=== PATIENT | female | born 1990 | race Caucasian/White ===

== ENCOUNTER 2017-07-06 16:21 | Outpatient (CLI) | payer MEDICAID | END 2017-07-06 17:56 | disposition home or self-care (01) | LOC: OBT 16:21 → L-D 16:23 → OBT 17:56 | DX: O26.893 Other specified pregnancy related conditions, third trimester (principal); R00.2 Palpitations; R06.02 Shortness of breath; Z3A.35 35 weeks gestation of pregnancy | CPT/HCPCS: 76818 ==

== ENCOUNTER 2017-07-06 18:00 | Emergency (ER) | payer MEDICAID | END 2017-07-06 23:07 | disposition home or self-care (01) | LOC: FTE 18:00 | DX: O99.89 Other specified diseases and conditions complicating pregnancy, childbirth and the puerperium (principal); R00.2 Palpitations; Z3A.34 34 weeks gestation of pregnancy | CPT/HCPCS: 93005; 99283-25 ==

== ENCOUNTER 2017-07-29 18:14 | Outpatient (CLI) | payer MEDICAID ==
[2017-07-29 19:41] LABS: ADD UMIC YES; UR ASCORBIC ACID NEGATIVE (NEGATIVE); UR BACTERIA FEW /HPF (NONE SEEN); UR BILIRUBIN (Dip) NEGATIVE (NEGATIVE); UR BLOOD (Dip) NEGATIVE (NEGATIVE); UR CALCIUM OXALATE CRYSTAL MANY /HPF (NONE SEEN); UR CLARITY SLIGHTLY CLOUDY (CLEAR); UR COLOR YELLOW (YELLOW); UR GLUCOSE (Dip) NEGATIVE (NEGATIVE); UR KETONES (Dip) NEGATIVE (NEGATIVE); UR LEUKOCYTE ESTERASE (Dip) TRACE Leu/ul (NEGATIVE); UR MUCUS FEW /HPF (NONE SEEN); UR NITRITE (Dip) NEGATIVE (NEGATIVE); UR RBC 3 /HPF (0-5); UR SPECIFIC GRAVITY (Dip) 1.033 (1.003-1.030); UR SQUAMOUS EPITHELIAL CELL MODERATE /HPF (FEW); UR TOTAL PROTEIN (Dip) 1+ mg/dl (NEGATIVE); UR UROBILINOGEN (Dip) 1+ mg/dL (NEGATIVE); UR WBC 5 /HPF (0-5)
[2017-07-29] MEDS ORDERED: LACTATED RINGER'S 1,000 ML IV (20:00)
[2017-07-29] MEDS: LACTATED RINGER'S 1,000 ML IV (20:17)
[2017-07-29] MEDS ORDERED: FENTAnyl 2MCG/ML-ROPIV 0.2% 100 ML (23:08)
== END 2017-07-29 23:56 | disposition home or self-care (01) ==
LOC: OBT 18:14 → L-D 18:15 → OBT 23:56
DX: O62.9 Abnormality of forces of labor, unspecified (principal); Z3A.38 38 weeks gestation of pregnancy
CPT/HCPCS: 36415; 76818; 81001; 96360; 96361

== ENCOUNTER 2017-08-01 18:27 | Observation (INO) | payer MEDICAID ==
[2017-08-01] MEDS: LACTATED RINGER'S 1,000 ML IV ×2 (20:31→22:05)
[2017-08-01] MEDS: ACETAMINOPHEN 1000MG/100ML IV 100 ML IVPB (21:16)
[2017-08-01 23:01] LABS: ADD UMIC YES; UR ASCORBIC ACID NEGATIVE (NEGATIVE); UR BACTERIA FEW /HPF (NONE SEEN); UR BILIRUBIN (Dip) NEGATIVE (NEGATIVE); UR BLOOD (Dip) NEGATIVE (NEGATIVE); UR CLARITY CLEAR (CLEAR); UR COLOR YELLOW (YELLOW); UR GLUCOSE (Dip) NEGATIVE (NEGATIVE); UR KETONES (Dip) NEGATIVE (NEGATIVE); UR LEUKOCYTE ESTERASE (Dip) TRACE Leu/ul (NEGATIVE); UR NITRITE (Dip) NEGATIVE (NEGATIVE); UR RBC 1 /HPF (0-5); UR SPECIFIC GRAVITY (Dip) 1.014 (1.003-1.030); UR SQUAMOUS EPITHELIAL CELL FEW /HPF (FEW); UR TOTAL PROTEIN (Dip) NEGATIVE (NEGATIVE); UR UROBILINOGEN (Dip) 1+ mg/dL (NEGATIVE); UR WBC 1 /HPF (0-5)
[2017-08-01] MEDS ORDERED: OXYTOCIN 30 UNITS/LR 500 ML IV (23:30)
[2017-08-01] MEDS ORDERED: METHYLERGONOVINE 0.2 MG INJ IM (23:30)
[2017-08-01] MEDS ORDERED: CARBOPROST 250 MCG INJ IM (23:30)
[2017-08-01] MEDS ORDERED: MISOPROSTOL 200 MCG TAB PR (23:30)
[2017-08-01 23:42] LABS: ADD MAN DIFF? NO
[2017-08-01 23:43] LABS: WHITE BLOOD COUNT 8.5 10^3/ul (4.8-10.8)
[2017-08-01 23:43] LABS: ABNORMAL IP MESSAGE 1; BASOPHILS % 0.2 % (0.0-2.0); EOSINOPHILS % 0.2 % (0.0-7.0); HEMATOCRIT 35.6 % (37.0-47.0); HEMOGLOBIN 11.9 g/dl (12.0-16.0); LYMPHOCYTES # 0.4 10^3/ul (0.8-2.9); LYMPHOCYTES % 4.8 % (15.0-51.0); MEAN CORPUSCULAR HGB CONC 33.4 g/dl (32.0-37.0); MEAN CORPUSCULAR VOLUME 95.7 fl (82.0-101.0); MONOCYTE # 0.5 10^3/ul (0.3-0.9); MONOCYTES % 5.4 % (0.0-11.0); NEUTROPHIL # 7.6 10^3/ul (1.6-7.5); PLATELET COUNT 139 10^3/UL (140-415); RED BLOOD COUNT 3.72 10^6/ul (4.20-5.40); RED CELL DISTRIBUTION WIDTH 13.2 % (11.5-14.5)
[2017-08-02] LABS: INR 0.98; PROTIME 13.1 Sec (11.9-14.9)
[2017-08-02 00:01] LABS: PARTIAL THROMBOPLASTIN TIME 30.3 Sec (25.0-35.0)
[2017-08-02 00:32] LABS: HEPATITIS B SURFACE ANTIGEN NEGATIVE (NEGATIVE)
[2017-08-02 01:10] LABS: POSITIVE DIFF @See below
[2017-08-02] MEDS: LACTATED RINGER'S 500 ML IV ×2 (02:02)
[2017-08-02] MEDS: OSELTAMIVIR 75 MG CAP PO (04:05)
[2017-08-02] MEDS: ACETAMINOPHEN 1000MG/100ML IV 100 ML IVPB (04:27)
[2017-08-02] MEDS: LACTATED RINGER'S 1,000 ML IV ×2 (04:28→12:54)
[2017-08-02] MEDS ORDERED: KETOROLAC 30 MG INJ (14:00)
[2017-08-02] MEDS ORDERED: METOCLOPRAMIDE 10 MG INJ (14:00)
[2017-08-02] MEDS ORDERED: ONDANSETRON 4 MG INJ (14:00)
[2017-08-02] MEDS ORDERED: morphine SULFATE/PF (10 MG/10 ML) INJ (14:00)
[2017-08-02] MEDS: AZITHROMYCIN 250 MG TAB PO (16:10)
[2017-08-02 22:57] LABS: RAPID PLASMA REAGIN NONREACTIVE (NR)
[2017-08-03] MEDS ORDERED: AZITHROMYCIN 250 MG TAB PO (09:00)
== END 2017-08-02 16:20 | disposition home or self-care (01) ==
LOC: OBT 18:27 → L-D 18:27 → OBT 23:39 → L-D 23:40
DX: O26.893 Other specified pregnancy related conditions, third trimester (principal); J11.1 Influenza due to unidentified influenza virus with other respiratory manifestations; Z3A.38 38 weeks gestation of pregnancy
CPT/HCPCS: 36415; 76818; 81001; 85025; 85610; 85730; 86592; 86850; 86900; 86901; 87086; 87340; 96360; 96361; 99217

== ENCOUNTER 2017-08-05 08:53 | Inpatient (IN) | payer MEDICAID ==
[2017-08-05] MEDS ORDERED: CARBOPROST 250 MCG INJ IM ×2 (09:30→19:00)
[2017-08-05] MEDS ORDERED: CEFAZOLIN 2 GM/50 ML (PMX) 50 ML IV (09:30)
[2017-08-05] MEDS ORDERED: MISOPROSTOL 200 MCG TAB PR ×2 (09:30→19:00)
[2017-08-05] MEDS ORDERED: METHYLERGONOVINE 0.2 MG INJ IM ×2 (09:30→19:00)
[2017-08-05] MEDS: LACTATED RINGER'S 1,000 ML IV ×3 (09:57→21:00)
[2017-08-05 10:18] LABS: ADD MAN DIFF? NO
[2017-08-05 10:25] LABS: BASOPHILS % 0.2 % (0.0-2.0); EOSINOPHILS % 0.8 % (0.0-7.0); HEMATOCRIT 35.5 % (37.0-47.0); HEMOGLOBIN 12.1 g/dl (12.0-16.0); LYMPHOCYTES # 1.2 10^3/ul (0.8-2.9); LYMPHOCYTES % 23.8 % (15.0-51.0); MEAN CORPUSCULAR HGB CONC 34.1 g/dl (32.0-37.0); MEAN CORPUSCULAR VOLUME 93.9 fl (82.0-101.0); MEAN PLATELET VOLUME 11.1 fl (7.4-10.4); MONOCYTE # 0.3 10^3/ul (0.3-0.9); MONOCYTES % 5.6 % (0.0-11.0); NEUTROPHIL # 3.4 10^3/ul (1.6-7.5); NEUTROPHILS % 69.4 % (39.0-77.0); PLATELET COUNT 150 10^3/UL (140-415); RED BLOOD COUNT 3.78 10^6/ul (4.20-5.40); RED CELL DISTRIBUTION WIDTH 13.1 % (11.5-14.5)
[2017-08-05 10:50] LABS: INR 0.94; PROTIME 12.7 Sec (11.9-14.9)
[2017-08-05 10:51] LABS: PARTIAL THROMBOPLASTIN TIME 27.2 Sec (25.0-35.0)
[2017-08-05 12:56] LABS: HEPATITIS B SURFACE ANTIGEN NEGATIVE (NEGATIVE)
[2017-08-05] MEDS: METOCLOPRAMIDE 10 MG INJ IV ×2 (13:20→21:00)
[2017-08-05] MEDS: CITRIC ACID/SODIUM CITRATE 15 ML CUP PO ×2 (13:20→21:00)
[2017-08-05] MEDS ORDERED: FENTAnyl 50 MCG/ML VIAL (13:45)
[2017-08-05] MEDS ORDERED: morphine SULFATE/PF (10 MG/10 ML) INJ (13:46)
[2017-08-05] MEDS ORDERED: PHENYLephrine (100 MCG/ML) 5ML SYG ×2 (13:58→14:26)
[2017-08-05] MEDS ORDERED: ONDANSETRON 4 MG INJ (14:15)
[2017-08-05] MEDS ORDERED: OXYTOCIN 30 UNITS/LR 500 ML IV (14:21)
[2017-08-05] MEDS ORDERED: EPHEDrine SULFATE 50 MG/5 ML SYG (15:02)
[2017-08-05] MEDS ORDERED: HYDROmorphONE (0.2 MG/ML) 10ML SYG IV (15:30)
[2017-08-05] MEDS ORDERED: NALOXONE (0.4 MG/ML) INJ IV (15:30)
[2017-08-05] MEDS ORDERED: FENTAnyl 50 MCG/ML VIAL IV (15:30)
[2017-08-05] MEDS ORDERED: MEPERIDINE 25 MG INJ IV (15:30)
[2017-08-05] MEDS ORDERED: HYDROmorphONE 0.5 MG/0.5 ML SYG IV ×2 (15:30)
[2017-08-05] MEDS ORDERED: ONDANSETRON 4 MG INJ IV ×2 (15:30)
[2017-08-05] MEDS ORDERED: DIPHENHYDRAMINE 50 MG INJ IV ×2 (15:30)
[2017-08-05] MEDS ORDERED: PROCHLORPERAZINE 10 MG INJ IV (15:30)
[2017-08-05] MEDS ORDERED: ZOLPIDEM 5 MG TAB PO (15:30)
[2017-08-05] MEDS: KETOROLAC 30 MG INJ IV ×2 (16:15→21:30)
[2017-08-05] MEDS: OXYTOCIN 30 UNITS/LR 500 ML IV ×2 (16:17→20:24)
[2017-08-05] MEDS ORDERED: NA PHOSPHATE/BIPHOS 133 ML ENEMA PR (19:00)
[2017-08-05] MEDS ORDERED: HYDROCODONE/APAP (5/325) TAB PO (19:00)
[2017-08-05] MEDS: FAMOTIDINE 20 MG INJ IV (21:00)
[2017-08-05] MEDS: SENNA/DOCUSATE NA (8.6MG/50MG) TAB PO (21:00)
[2017-08-05] MEDS: IBUPROFEN 800 MG TAB PO (22:00)
[2017-08-05 22:07] LABS: RAPID PLASMA REAGIN NONREACTIVE (NR)
[2017-08-05] MEDS: CEFAZOLIN 2 GM/50 ML (PMX) 50 ML IV (22:32)
[2017-08-05] MEDS: OSELTAMIVIR 75 MG CAP PO (23:11)
[2017-08-06] MEDS: CLINDAMYCIN 300 MG CAP PO ×5 (00:48→23:26)
[2017-08-06] MEDS: KETOROLAC 30 MG INJ IV ×2 (04:42→12:23)
[2017-08-06] MEDS: CEFAZOLIN 2 GM/50 ML (PMX) 50 ML IV ×2 (05:58→13:06)
[2017-08-06] MEDS: IBUPROFEN 800 MG TAB PO ×3 (06:00→21:34)
[2017-08-06] MEDS: LACTATED RINGER'S 1,000 ML IV ×2 (07:58→10:39)
[2017-08-06 09:23] LABS: ADD MAN DIFF? NO
[2017-08-06 09:27] LABS: BASOPHILS % 0.2 % (0.0-2.0); EOSINOPHILS % 0.4 % (0.0-7.0); HEMATOCRIT 30.7 % (37.0-47.0); HEMOGLOBIN 10.4 g/dl (12.0-16.0); LYMPHOCYTES # 1.1 10^3/ul (0.8-2.9); LYMPHOCYTES % 12.8 % (15.0-51.0); MEAN CORPUSCULAR HEMOGLOBIN 32.5 pg (29.0-33.0); MEAN CORPUSCULAR HGB CONC 33.9 g/dl (32.0-37.0); MEAN CORPUSCULAR VOLUME 95.9 fl (82.0-101.0); MEAN PLATELET VOLUME 11.4 fl (7.4-10.4); MONOCYTE # 0.6 10^3/ul (0.3-0.9); MONOCYTES % 7.4 % (0.0-11.0); NEUTROPHIL # 6.6 10^3/ul (1.6-7.5); PLATELET COUNT 109 10^3/UL (140-415)
[2017-08-06 09:27] LABS: WHITE BLOOD COUNT 8.3 10^3/ul (4.8-10.8)
[2017-08-06] MEDS: AZITHROMYCIN 250 MG TAB PO (09:53)
[2017-08-06] MEDS: SENNA/DOCUSATE NA (8.6MG/50MG) TAB PO ×2 (09:54→21:33)
[2017-08-06] MEDS: OSELTAMIVIR 75 MG CAP PO ×2 (09:54→21:33)
[2017-08-06] MEDS: LANOLIN 7 GM TUBE TOP (13:42)
[2017-08-06] MEDS: OXYCODONE/ACETAMINOPHEN (5/325) TAB PO ×2 (16:10→20:15)
[2017-08-06] MEDS: BISACODYL 10 MG SUPP PR ×2 (16:11→16:43)
[2017-08-07] MEDS: IBUPROFEN 800 MG TAB PO ×3 (05:43→21:43)
[2017-08-07] MEDS: CLINDAMYCIN 300 MG CAP PO ×4 (05:43→23:22)
[2017-08-07] MEDS: AZITHROMYCIN 250 MG TAB PO (08:46)
[2017-08-07] MEDS: OSELTAMIVIR 75 MG CAP PO ×2 (08:46→21:43)
[2017-08-07] MEDS: SENNA/DOCUSATE NA (8.6MG/50MG) TAB PO ×2 (08:46→21:43)
[2017-08-07] MEDS: OXYCODONE/ACETAMINOPHEN (5/325) TAB PO ×2 (15:47→23:21)
[2017-08-08] MEDS: CLINDAMYCIN 300 MG CAP PO ×2 (05:38→12:00)
[2017-08-08] MEDS: IBUPROFEN 800 MG TAB PO ×2 (05:38→14:13)
[2017-08-08] MEDS: DIPHTH/TET/ACEL PERTUSS (ADULT) 0.5 ML VIAL IM* (09:00)
[2017-08-08] MEDS: MEASLES,MUMPS,RUBELLA VACCINE INJ SC* (09:00)
[2017-08-08] MEDS: SENNA/DOCUSATE NA (8.6MG/50MG) TAB PO (09:20)
[2017-08-08] MEDS: AZITHROMYCIN 250 MG TAB PO (09:21)
[2017-08-08] MEDS: OSELTAMIVIR 75 MG CAP PO (09:21)
[2017-08-08] MEDS: OXYCODONE/ACETAMINOPHEN (5/325) TAB PO (12:20)
== END 2017-08-08 15:25 | disposition home or self-care (01) | DRG 766 ==
LOC: L-D 08:53 → PP1 17:49
PROVIDERS: Obstetrics & Gynecology
PROC: 10D00Z1 Extraction of Products of Conception, Low, Open Approach (ICD-10-PCS; principal; 2017-08-05 12:30)
DX: O34.211 Maternal care for low transverse scar from previous cesarean delivery (principal); Z37.0 Single live birth; Z3A.39 39 weeks gestation of pregnancy
CPT/HCPCS: 85025; 85610; 85730; 86592; 86850; 86900; 86901; 87340; 90715; 99464